=== PATIENT | female | born 2000 | race Caucasian/White ===

== ENCOUNTER → 2022-02-11 | Outpatient (CLI) | payer OTHER ==
[2022-02-11 13:01] LABS: BASO % 0.4 % (0.0-1.0); EOS # 0.1 10^3/uL (0.0-0.5); EOS % 0.6 % (0.0-3.0); HEMATOCRIT 40.9 % (36.0-47.0); HEMOGLOBIN 13.6 g/dl (12.0-15.5); LYMPH # 3.5 10^3/uL (1.5-5.0); LYMPH % 35.1 % (24.0-44.0); MEAN CORPUSCULAR HEMOGLOBIN 27.2 pg (27.0-33.0); MEAN CORPUSCULAR HGB CONC 33.3 g/dl (32.0-36.5); MEAN CORPUSCULAR VOLUME 81.8 fl (80.0-96.0); MONO # 1.2 10^3/uL (0.0-0.8); MONO % 11.7 % (2.0-8.0); NEUTROPHILS # 5.2 10^3/uL (1.5-8.5); PLATELET COUNT, AUTOMATED 371 10^3/uL (150-450)
[2022-02-11 13:21] LABS: ERYTHROCYTE SEDIMENTATION RATE 4 mm/hr (0-20)
[2022-02-11 13:44] LABS: ALBUMIN 3.7 GM/DL (3.2-5.2); ALT/SGPT 139 U/L (12-78); BILIRUBIN,TOTAL 0.4 MG/DL (0.2-1.0); BLOOD UREA NITROGEN 14 MG/DL (7-18); CALCIUM LEVEL 9.8 MG/DL (8.5-10.1); CARBON DIOXIDE LEVEL 26 MEQ/L (21-32); CHLORIDE LEVEL 109 MEQ/L (98-107); CREATININE FOR GFR 0.75 MG/DL (0.55-1.30); GLUCOSE, FASTING 84 MG/DL (70-100); IMMUNOGLOBULIN A 73.5 MG/DL (70-400); IMMUNOGLOBULIN E 20.4 IU/ML (<100); IMMUNOGLOBULIN G 1030 MG/DL (681-1648); POTASSIUM SERUM 4.5 MEQ/L (3.5-5.1); SODIUM LEVEL 141 MEQ/L (136-145); TOTAL PROTEIN 6.8 GM/DL (6.4-8.2)
== END ==
LOC: M LAB 12:21
PROVIDERS: ATTEND Allergy & Immunology Allergy
DX: D84.9 Immunodeficiency, unspecified (principal)

== ENCOUNTER 2024-01-16 18:38 | Observation (INO) | payer OTHER ==
[~2024-01-16] VITALS: Ht 165.1 cm; Wt 98.3 kg
[2024-01-16 19:20] LABS: BASO # 0.1 10^3/uL (0.0-0.2); BASO % 0.4 % (0.0-1.0); EOS % 0.3 % (0.0-3.0); HEMOGLOBIN 13.6 g/dl (12.0-15.5); LYMPH # 3.2 10^3/uL (1.5-5.0); LYMPH % 23.9 % (24.0-44.0); MEAN CORPUSCULAR HEMOGLOBIN 27.4 pg (27.0-33.0); MEAN CORPUSCULAR HGB CONC 33.2 g/dl (32.0-36.5); MEAN CORPUSCULAR VOLUME 82.7 fl (80.0-96.0); MONO # 1.1 10^3/uL (0.0-0.8); MONO % 8.2 % (2.0-8.0); NEUTROPHILS # 8.9 10^3/uL (1.5-8.5); NEUTROPHILS % 66.9 % (36.0-66.0); PLATELET COUNT, AUTOMATED 328 10^3/uL (150-450); RED BLOOD COUNT 4.96 10^6/uL (4.00-5.40); WHITE BLOOD COUNT 13.3 10^3/uL (4.0-10.0)
[2024-01-16 19:37] LABS: ERYTHROCYTE SEDIMENTATION RATE 16 mm/hr (0-20)
[2024-01-16 19:55] LABS: BLOOD UREA NITROGEN 25 MG/DL (9-23); CALCIUM LEVEL 9.1 MG/DL (8.5-10.1); CARBON DIOXIDE LEVEL 26 MMOL/L (20-31); CHLORIDE LEVEL 109 MMOL/L (98-107); CREATININE FOR GFR 0.87 MG/DL (0.55-1.30); GLOMERULAR FILTRATION RATE > 60.0 (>60); GLUCOSE, FASTING 88 MG/DL (60-100); POTASSIUM SERUM 4.4 MMOL/L (3.5-5.1); SODIUM LEVEL 137 MMOL/L (136-145)
[2024-01-16] MEDS ORDERED: NORT1TAB3 (22:57)
[2024-01-16] MEDS ORDERED: FLUTISP (22:57)
[2024-01-16] MEDS ORDERED: MONT10TA97 (22:57)
[2024-01-17] MEDS ORDERED: MELA5TAB58 PO (01:49)
[2024-01-17] MEDS ORDERED: ALYA1TAB PO (01:49)
[2024-01-17] MEDS ORDERED: MONT10TA97 PO (01:49)
[2024-01-17] MEDS ORDERED: FLON1SPR NARES (01:49)
[2024-01-17] MEDS ORDERED: HOME MED LIST COMPLETE! XX SCH (01:50)
[2024-01-17] MEDS: FLUTICASONE PROP 0.05% NASAL SPRAY 16 GM (FLONASE) NARES SCH (01:55)
[2024-01-17] MEDS: CEFTAROLINE FOSAMIL 600 MG in D5W MINI-BAG PLUS 50 ML IV ONE (02:07)
[2024-01-17] MEDS: KETOROLAC 30 MG/ML 1ML VIAL IV STA (03:31)
[2024-01-17 03:49] VITALS: BP 117/80; TEMP 98.2; O2SAT 99
[2024-01-17] MEDS: CLINDAMYCIN 150MG CAPSULE PO SCH (05:23)
[2024-01-17 06:00] VITALS: BP 105/61; TEMP 98.6; O2SAT 98
[2024-01-17 07:38] LABS: BASO % 0.3 % (0.0-1.0); EOS % 0.3 % (0.0-3.0); HEMATOCRIT 37.9 % (36.0-47.0); HEMOGLOBIN 12.3 g/dl (12.0-15.5); LYMPH # 3.1 10^3/uL (1.5-5.0); LYMPH % 25.5 % (24.0-44.0); MEAN CORPUSCULAR HEMOGLOBIN 26.6 pg (27.0-33.0); MEAN CORPUSCULAR HGB CONC 32.5 g/dl (32.0-36.5); MONO # 1.1 10^3/uL (0.0-0.8); MONO % 9.3 % (2.0-8.0); NEUTROPHILS # 7.7 10^3/uL (1.5-8.5); NEUTROPHILS % 64.3 % (36.0-66.0); PLATELET COUNT, AUTOMATED 287 10^3/uL (150-450); RED BLOOD COUNT 4.62 10^6/uL (4.00-5.40)
[2024-01-17 07:59] LABS: ALBUMIN 3.1 G/DL (3.2-5.2); ALKALINE PHOSPHATASE 46 U/L (46-116); ALT/SGPT 21 U/L (7.0-40); AST/SGOT 14 U/L (<34); BILIRUBIN,TOTAL 0.3 MG/DL (0.3-1.2); BLOOD UREA NITROGEN 21 MG/DL (9-23); CALCIUM LEVEL 8.7 MG/DL (8.5-10.1); CARBON DIOXIDE LEVEL 25 MMOL/L (20-31); CHLORIDE LEVEL 109 MMOL/L (98-107); CREATININE FOR GFR 0.81 MG/DL (0.55-1.30); GLOMERULAR FILTRATION RATE > 60.0 (>60); GLUCOSE, FASTING 102 MG/DL (60-100); POTASSIUM SERUM 4.1 MMOL/L (3.5-5.1); SODIUM LEVEL 141 MMOL/L (136-145); TOTAL PROTEIN 5.6 G/DL (5.7-8.2)
[2024-01-17] MEDS: ACETAMINOPHEN TAB 650MG DOSE (2X325MG) PO PRN (09:01)
[2024-01-17 09:02] LABS: PROCALCITONIN <0.04 ng/ml
[2024-01-17] MEDS: MONTELUKAST 10 MG TAB PO SCH (09:07)
[2024-01-17] MEDS: FLUCONAZOLE 50MG TABLET PO ONE (12:52)
[2024-01-17] MEDS ORDERED: CLIN150C17 PO (13:39)
[2024-01-17] MEDS ORDERED: PROBCAP19 PO (13:39)
[2024-01-17] MEDS ORDERED: FLUC150T9 PO (13:39)
== END 2024-01-17 14:45 | disposition home or self-care (01) ==
LOC: M ED 18:38 → M ED INP 18:39 → ENRESERV 01-17 02:04 → M MS5PR 01-17 03:51
PROVIDERS: ADMIT Internal Medicine; ATTEND Internal Medicine
DX: M70.41 Prepatellar bursitis, right knee (principal); J30.9 Allergic rhinitis, unspecified; J30.2 Other seasonal allergic rhinitis; J45.909 Unspecified asthma, uncomplicated; Z79.2 Long term (current) use of antibiotics; E66.01 Morbid (severe) obesity due to excess calories
CPT/HCPCS: 36415; 73564; 80048; 80053; 84145; 84702; 85025; 85652; 86140; 87040; 87635; 96365; 96375; 99284; J0712; J1885